=== PATIENT | male | born 1970 | race Two or more races ===

== ENCOUNTER 2023-04-14 02:31 | Emergency (ER) | payer OTHER ==
[~2023-04-14] VITALS: Ht 170.2 cm; Wt 103.9 kg
[2023-04-14] MEDS ORDERED: DOLOGESIC 500-1 EACH PO ×2 (06:20→06:21)
[2023-04-14] MEDS ORDERED: CLEOCIN HCL300 MG PO (06:21)
== END 2023-04-14 06:33 | disposition home or self-care (01) ==
LOC: ER 02:32
DX: S91.331A Puncture wound without foreign body, right foot, initial encounter (principal); X58.XXXA Exposure to other specified factors, initial encounter; Y93.89 Activity, other specified; Y92.89 Other specified places as the place of occurrence of the external cause; Y99.8 Other external cause status; Z88.6 Allergy status to analgesic agent; Z88.0 Allergy status to penicillin

== ENCOUNTER 2024-01-22 23:31 | Emergency (ER) | payer OTHER ==
[~2024-01-22] VITALS: Ht 170.2 cm; Wt 61.2 kg
[~2024-01-22 23:31] MED LIST: CLEOCIN HCL300 MG PO; DOLOGESIC 500-1 EACH PO
[2024-01-23] MEDS ORDERED: ERYTHROMYCIN500 MG PO (01:19)
== END 2024-01-23 01:24 ==
LOC: ER 23:32
DX: S61.412A Laceration without foreign body of left hand, initial encounter (principal); W26.8XXA Contact with other sharp object(s), not elsewhere classified, initial encounter; Y93.89 Activity, other specified; Y92.89 Other specified places as the place of occurrence of the external cause; Y99.9 Unspecified external cause status; Z88.6 Allergy status to analgesic agent; Z88.0 Allergy status to penicillin

== ENCOUNTER 2024-05-05 21:52 | Emergency (ER) | payer OTHER ==
[~2024-05-05] VITALS: Ht 170.2 cm; Wt 104.3 kg
[~2024-05-05 21:52] MED LIST changes: +ERYTHROMYCIN500 MG PO
[2024-05-06] MEDS ORDERED: SILVER SULFADIAZINE 50 GM JAR TOP STA (04:46)
== END 2024-05-06 04:57 | disposition home or self-care (01) ==
LOC: ER 21:54
DX: T21.02XA Burn of unspecified degree of abdominal wall, initial encounter (principal); X11.8XXA Contact with other hot tap-water, initial encounter; Y93.G3 Activity, cooking and baking; Y92.89 Other specified places as the place of occurrence of the external cause; Y99.9 Unspecified external cause status; Z88.6 Allergy status to analgesic agent; Z88.0 Allergy status to penicillin